=== PATIENT | female | born 1955 | race Caucasian/White ===

== ENCOUNTER 2016-06-25 05:50 | Inpatient (IN) | payer BC ==
[2016-06-03 10:40] VITALS: Ht 149.9 cm; Wt 97.2 kg
--- NOTE | 2016-06-03 11:14 | PAT Medication Instructions ---
Service Date Jun 03, 2016. Current Home Medication List Cholecalciferol (Vitamin D3), 5,000 UNITS PO QAM Cranberry-Vitamin C-Vitamin E (Cranberry), 1 TAB PO QAM Diclofenac Sodium (Topical) (Pennsaid), 1 DOSE TOP BID Letrozole (Femara), 2.5 MG PO QAM Probiotic Product (Probiotic), 1 TAB PO QAM [Zinc], 1 TAB PO QAM [calcium], 600 MG PO QAM Medication Instructions For Your Scheduled Surgery - Check with surgeon/prescribing physician for instructions: Letrozole (Femara), 2.5 MG PO QAM - Hold the following medications 2 weeks prior to surgery: Cranberry-Vitamin C-Vitamin E (Cranberry), 1 TAB PO QAM - Hold the following medications 24 hours prior to surgery: Diclofenac Sodium (Topical) (Pennsaid), 1 DOSE TOP BID - Hold the following medications the morning of surgery: Probiotic Product (Probiotic), 1 TAB PO QAM [Zinc], 1 TAB PO QAM [calcium], 600 MG PO QAM Cholecalciferol (Vitamin D3), 5,000 UNITS PO QAM If you have any questions please call us at [phone] (Viki Villarreal PA-C) or [phone] or [phone]
[2016-06-03 12:08] LABS: BASO % 0.7 %; BASO ABS # 0.06 K/uL (0-0.2); COMPLETE YES; EOS % 5.4 %; HEMATOCRIT 44.1 % (37-47); IG% 0.2 %; LYMPH % 26.1 %; LYMPH ABS # 2.14 K/uL (1.2-3.4); MEAN CELL VOLUME 89.8 fL (80-100); MEAN CORPUSCULAR HEMOGLOBIN 29.3 pg (25-34); MEAN CORPUSCULAR HGB CONC 32.7 g/dl (32-36); MEAN PLATELET VOLUME 11.1 fL (7.4-10.4); NEUT % 61.6 %; PLATELET COUNT 301 K/uL (130-400); RED BLOOD COUNT 4.91 M/uL (4.2-5.4); WHITE BLOOD COUNT 8.19 K/uL (4.8-10.8)
[2016-06-03 12:18] LABS: URINE APPEARANCE CLEAR (CLEAR); URINE BILIRUBIN NEG (NEG); URINE COLOR YELLOW; URINE NITRITE NEG (NEG); URINE PH 5.5 (4.5-7.5); URINE SPECIFIC GRAVITY 1.017 (1.000-1.030); UROBILINOGEN NEG (NEG)
[2016-06-03 12:19] LABS: INR 0.9 (0.9-1.1)
[2016-06-03 12:29] LABS: MANUAL MICROSCOPIC REQUIRED? NO; REVIEW REQ? NO
--- NOTE | 2016-06-03 12:37 | DIAGNOSTIC IMAGING REPORT ---
CHEST 2 VIEWS ROUTINE CLINICAL HISTORY: Preoperative chest COMPARISON STUDY: No previous studies for comparison. FINDINGS: The cardiac and mediastinal contours are normal. There is no evidence of focal pulmonary consolidation. There is no evidence of failure. No pleural effusions are visualized.[ Surgical clips project over the right breast and chest wall. There are surgical clips in right upper quadrant consistent with a prior cholecystectomy. There is a scoliosis. IMPRESSION: No active disease in the chest. Electronically signed by: Fco Quiñones M.D. 06/03/2016 12:35 PM Dictated Date/Time: 06/03/2016 12:34 PM
[2016-06-03 12:47] LABS: ESTIMATED AVERAGE GLUCOSE 111 mg/dl; HA1C FLAG Normal (Normal)
[2016-06-03 14:18] LABS: BUN/CREATININE RATIO 16.3 (10-20); CREATININE 0.87 mg/dl (0.60-1.20)
[2016-06-03 14:29] LABS: CALCIUM 9.8 mg/dl (8.5-10.1)
--- NOTE | 2016-06-24 08:54 | HISTORY & PHYSICAL EXAMINATION ---
DATE OF ADMISSION: 06/25/2016 CHIEF COMPLAINT: Right knee pain. HISTORY OF PRESENT ILLNESS: The patient is a 61-year-old female with known osteoarthritis about her right knee. She had a successful left total knee arthroplasty approximately 4-5 years ago. She also has known osteoarthritis about her right knee. She has had previous corticosteroid as well as viscosupplementation injections. Due to ongoing pain and disability with work and activities of daily living, patient now desires to proceed with right total knee arthroplasty. PAST MEDICAL HISTORY: Sleep apnea, osteoarthritis, obesity and breast cancer. PAST SURGICAL HISTORY: x3, cholecystectomy, endometrial ablation, bladder surgery, left knee replacement as above, right breast mastectomy and reconstruction. MEDICATIONS: Femara 2.5 mg daily, calcium daily, vitamin D3, vitamin B12, cranberry, acidophilus and zinc. ALLERGIES: NIACIN WHICH CAUSES FACIAL FLUSHING. SOCIAL HISTORY AND REVIEW OF SYSTEMS: Noncontributory. PHYSICAL EXAMINATION: GENERAL: Well-nourished, well-developed female who appears her stated age. HEAD, EYES, EARS, NOSE, AND THROAT: Normocephalic, atraumatic, extraocular movements intact, oropharynx pink and moist. NECK: Supple without adenopathy. LUNGS: Clear to auscultation bilaterally. HEART: Regular rate and rhythm. ABDOMEN: Soft, nontender, nondistended, obese. EXTREMITIES: The upper extremity within normal limits. The right knee has a slight varus alignment. Her range of motion is approximately -10 to 110 degrees. She has mild crepitus with range of motion. X-RAYS: X-rays were reviewed. She has a varus aligned knee. She has bone on bone arthritis of the medial compartment with complete loss of joint space. There is subchondral sclerosis. She has mild degenerative changes about the patellofemoral joint as well. ASSESSMENT: Right knee degenerative joint disease. PLAN: Risks versus benefits were discussed, consent was obtained. The patient's primary care physician is Dr. Guerin from [facility] in [place]. Will proceed with right total knee arthroplasty upon preoperative workup and medical clearance.
[~2016-06-25] VITALS: Ht 149.9 cm; Wt 97.2 kg
[2016-06-25] VITALS (9 sets, daily range): BP systolic 107–141; BP diastolic 73–89; PULSE 62–93; TEMP 36.6–36.9; O2SAT 93–99
[~2016-06-25 05:50] MED LIST: CHOL1000 PO; CRAN1CAP15 PO; DICL1SOL6 TOP; FMR25 PO; MISCCAP80 PO; ZINC PO; calcium PO
[2016-06-25] MEDS ORDERED: ACETAMINOPHEN 500 MG TAB PO SCH (06:00)
[2016-06-25] MEDS ORDERED: LACTATED RINGER'S 500 ML IV SCH (06:00)
[2016-06-25] MEDS ORDERED: CEFAZOLIN 2000 MG/60 ML D5W 60 ML IV SCH (06:00)
[2016-06-25] MEDS ORDERED: CeleBREX 200 MG CAP PO SCH (06:00)
[2016-06-25] MEDS ORDERED: LACTATED RINGER'S 1000ML IV SCH ×2 (06:00)
[2016-06-25] MEDS ORDERED: DEXAMETHASONE 4 MG TAB PO SCH (06:00)
[2016-06-25] MEDS ORDERED: GABAPENTIN 300 MG CAP PO SCH (06:00)
[2016-06-25] MEDS ORDERED: ROPIVACAINE 5MG/ML 30 ML 150 MG, BUPIVACAINE/EPINEPHR 0.5% MPF 30 ML, KETOROLAC TROMETH... INFIL SCH ×7 (06:00)
[2016-06-25] MEDS ORDERED: TRANEXAMIC ACID INJ 1,000 MG in SODIUM CHLORIDE 0.9% 100ML 100 ML IV SCH (06:00)
[2016-06-25] MEDS ORDERED: FAMOTIDINE 20 MG TAB PO SCH (06:00)
[2016-06-25] MEDS ORDERED: METOCLOPRAMIDE HCL 10 MG TAB PO SCH (06:00)
[2016-06-25] MEDS ORDERED: LIDOCAINE HCL 2% 2 ML VIAL (20MG/ML) ONE (06:25)
[2016-06-25] MEDS ORDERED: PROPOFOL IV EMULSION 10 MG/ML 20 ML VIAL IV ONE (06:25)
[2016-06-25] MEDS ORDERED: MIDAZOLAM HCL 1 MG/ML 2ML VIAL ONE ×2 (06:25)
[2016-06-25] MEDS: TRANEXAMIC ACID INJ 1,000 MG in SODIUM CHLORIDE 0.9% 100ML 100 ML IV SCH ×2 (06:30→07:46)
[2016-06-25] MEDS ORDERED: ONDANSETRON INJ 2 MG/ML 2 ML VIAL IV PRN ×2 (06:45→10:00)
[2016-06-25] MEDS ORDERED: BUPIVACAINE 0.5 % 5 MG/1 ML PF 10ML VIAL ONE (06:45)
[2016-06-25] MEDS ORDERED: ATROPINE SULFATE 0.1 MG/ML 5ML SYR IV PRN (06:45)
[2016-06-25] MEDS ORDERED: FENTANYL CITRATE INJ 50 MCG/1 ML 2 ML VIAL IV PRN (06:45)
[2016-06-25] MEDS ORDERED: EpHEDrine SULFATE INJ 50 MG/ML AMP IV PRN (06:45)
[2016-06-25] MEDS ORDERED: POVIDONE-IODINE OP SOLN 30 ML BTL ONE (06:58)
[2016-06-25] MEDS ORDERED: ORTHO JOINT ANESTHETIC ONE (06:58)
--- NOTE | 2016-06-25 06:58 | History & Physical Bridge Note ---
H&P Re-Evaluation Bridge Note: I have examined the patient, reviewed the History & Physical and in the interval since the performance of the History & Physical I have noted the following changes of clinical significance: No changes noted
[2016-06-25] MEDS ORDERED: BACITRACIN 50000 UNIT VIAL ONE (06:59)
--- NOTE | 2016-06-25 09:09 | [facility] Post Operative Brief Note ---
Immediate Operative Summary Operative Date June 25, 2016. Pre-Operative Diagnosis Right Knee Degenerative Joint Disease Post-Operative Diagnosis Right Knee Degenerative Joint Disease Procedure(s) Performed Right Total Knee Arthoplasty Surgeon Dr. Vasques Ex Chef Surgeon(s) Omid Ritchie PA-C Estimated Blood Loss 10 cc Findings severe OA Specimens A: Right Knee Bone and Tissue Disposition Recovery Room / PACU
--- NOTE | 2016-06-25 09:45 | OPERATIVE REPORT ---
DATE OF OPERATION: 06/25/2016 PREOPERATIVE DIAGNOSIS: Osteoarthritis, right knee. POSTOPERATIVE DIAGNOSIS: Osteoarthritis, right knee. PROCEDURE: Right cementless total knee arthroplasty with cemented patella. SURGEON: Dr. Vasques. PUBLICITY EXPERT: Omid Ritchie PA-C. ANESTHESIA: Spinal. COMPLICATIONS: None. OPERATION AND FINDINGS: DESCRIPTION OF PROCEDURE: Following induction of adequate spinal anesthesia, the patient's right leg was prepped and draped in the usual sterile manner. Limb was exsanguinated with an Esmarch bandage and tourniquet was inflated to 350 mmHg. Longitudinal incision was made. Subcutaneous tissue was sharply dissected. Electrocautery was used for hemostasis. Median parapatellar incision was made. Patella was everted and the knee was flexed. Fat pad was removed and the medial face of the tibia was cleared with a Bovie and a blunt retractor was placed medially. ACL and PCL were removed. The tibial guide was placed and the proximal tibial cut was made using the oscillating saw. This bone fragment was removed. Next, attention was turned to the distal femur where a drill was used to open the femoral canal and the proximal alignment david was placed and the distal femoral cutting jig and set for 10 mm resection was placed. This was pinned into position. The intramedullary guide was removed and the distal femoral cut was made. These bone fragments were removed and initial cut with a size 3 tibial cutting block was felt to be inadequate and 2 cutting block was placed. These cuts were made and this left perfect bony surfaces. The notch cutting guide was placed and the notch was cut and removed. A laminar elementary teacher was used to expose the posterior reaches of the knee and the medial and lateral meniscuses were removed. The Aquamantys was used to gain hemostasis. Next, the trial femoral component was impacted into position and the drill holes for the cementless femur were made. A blunt Hohmann was used to expose the tibia and the tibial cut was cleaned up and rongeur was used to remove any additional bony fragments. A size 2 tibial tray was placed, the keel punch was used to create the keel slots. A trial reduction was carried out and 9 mm poly gave good reproduction of soft tissue tension with collateral stability in full extension. Next, the patella was reamed to a depth of 13 mm and the drill holes were made using the guide for a 33 mm patella. Trial patella was placed and knee was flexed. There was found to be good tracking of the patella. All trials were removed and the guide was placed in the tibial keel for the 4 drill holes for the cementless tibia and these were created. A periarticular joint injection was performed and thorough irrigation of the joint was performed using pulsatile irrigation. A single bag of cement was mixed for the patella and the trial femur and tibial components were impacted in position. The tibial poly was impacted and the knee was extended and the patella was cemented in position. Excess cement was removed. Drain was placed. #1 Vicryl was used to close the extensor mechanism. Subcutaneous tissues were closed using 0 Dexon, and skin was closed with brandon. A Prevena was placed. The patient tolerated the procedure well. Hot Car Charger was Omid Ritchie PA-C. He was essential throughout the case including positioning, prepping, draping, surgical elastic knitter hand frame, wound closure and dressing application. I attest to the content of the Intraoperative Record and any orders documented therein. Any exceptio ns are noted below.
[2016-06-25] MEDS ORDERED: BISACODYL 10 MG SUPP PR PRN (10:00)
[2016-06-25] MEDS ORDERED: ALUMINUM/MAGNESIUM/SIMETH (MAALOX MAX) 30 ML UDC PO PRN (10:00)
[2016-06-25] MEDS ORDERED: MoRPHine SULFATE 2 MG/ML CARP IV PRN (10:00)
[2016-06-25] MEDS ORDERED: MAGNESIUM HYDROXIDE SUSP 30 ML UDC PO PRN (10:00)
[2016-06-25] MEDS ORDERED: MoRPHine SULFATE 4 MG/ML 1 ML CARP\\VIAL IV PRN (10:15)
[2016-06-25] MEDS ORDERED: MoRPHine SULFATE 10 MG/ML CARP/VIAL IV PRN (10:15)
--- NOTE | 2016-06-25 10:34 | DIAGNOSTIC IMAGING REPORT ---
RIGHT KNEE 2 VIEWS History: Right total knee arthroplasty. Degenerative arthritis. Postop. FINDINGS: The patient is status post a right total knee arthroplasty. The hardware is intact. No fracture or dislocation. Skin brandon and surgical drains are in place. IMPRESSION: Right total knee arthroplasty. No evidence for hardware complication. Electronically signed by: Ke Calvo M.D. 06/25/2016 10:33 AM Dictated Date/Time: 06/25/2016 10:32 AM
--- NOTE | 2016-06-25 10:39 | Anesthesiology Progress Note ---
Anesthesia Post Op Note Date & Time June 25, 2016 at 10:40 Vital Signs Pain Intensity: 0 Vital Signs Past 12 Hours Date Time Temp Pulse Resp B/P Pulse Ox O2 Delivery O2 Flow Rate FiO2 06/25/16 10:36 37 06/25/16 10:31 122/81 06/25/16 10:30 73 15 97 06/25/16 10:30 73 15 06/25/16 10:26 123/83 06/25/16 10:25 73 16 06/25/16 10:25 74 16 98 06/25/16 10:21 108/80 06/25/16 10:20 78 16 06/25/16 10:20 79 16 96 06/25/16 10:16 108/76 06/25/16 10:15 77 15 94 06/25/16 10:15 76 15 06/25/16 10:11 122/75 06/25/16 10:10 84 15 06/25/16 10:10 84 15 93 06/25/16 10:06 117/75 06/25/16 10:05 86 12 06/25/16 10:05 87 12 96 06/25/16 10:01 113/76 06/25/16 10:00 86 15 93 06/25/16 10:00 87 15 06/25/16 09:59 Nasal Cannula 3 06/25/16 09:57 122/67 06/25/16 09:55 84 15 95 06/25/16 09:55 86 15 06/25/16 09:45 36.6 91 16 103/61 97 Room Air 06/25/16 06:23 36.9 87 18 141/88 96 Room Air Notes Mental Status: alert / awake / arousable, participated in evaluation Pt Amnestic to Procedure: Yes Nausea / Vomiting: adequately controlled Pain: adequately controlled Airway Patency, RR, SpO2: stable & adequate BP & HR: stable & adequate Hydration State: stable & adequate Neuraxial Anesthesia: was administered, sensory block is resolving Anesthetic Complications: no major complications apparent
[2016-06-25] MEDS: FERROUS GLUCONATE 324 MG TAB PO SCH ×2 (13:08→18:58)
[2016-06-25] MEDS: D5W AND 1/2NSS + 20MEQ KCL 1,000 ML IV SCH ×2 (13:08→21:50)
[2016-06-25] MEDS: ACETAMINOPHEN 500 MG TAB PO SCH ×2 (13:12→21:49)
[2016-06-25] MEDS: CEFAZOLIN IV 2,000 MG in DEXTROSE 5% 50ML 50 ML IV SCH ×2 (13:19→21:50)
[2016-06-25] MEDS: SENNA 8.6 MG TAB PO SCH (21:48)
[2016-06-25] MEDS: ASPIRIN 81 MG ECTAB PO SCH (21:48)
[2016-06-25] MEDS: DOCUSATE SODIUM 100 MG CAP PO SCH (21:48)
[2016-06-25] MEDS: OXYCODONE HCL 10 MG TABCR (OXYCONTIN) PO SCH (21:49)
[2016-06-25] MEDS: OXYCODONE HCL IR 5 MG TAB (IMMEDIATE RELEASE) PO PRN (23:49)
[2016-06-26 03:26] VITALS: BP 113/74; PULSE 77; TEMP 36.8; O2SAT 98
[2016-06-26] MEDS: ACETAMINOPHEN 500 MG TAB PO SCH ×3 (05:41→22:43)
[2016-06-26] MEDS: OXYCODONE HCL IR 5 MG TAB (IMMEDIATE RELEASE) PO PRN (05:41)
[2016-06-26 05:56] LABS: HEMATOCRIT 35.8 % (37-47); MEAN CELL VOLUME 87.5 fL (80-100); MEAN CORPUSCULAR HEMOGLOBIN 28.6 pg (25-34); MEAN CORPUSCULAR HGB CONC 32.7 g/dl (32-36); PLATELET COUNT 262 K/uL (130-400); RED BLOOD COUNT 4.09 M/uL (4.2-5.4); WHITE BLOOD COUNT 17.17 K/uL (4.8-10.8)
[2016-06-26 06:22] LABS: BUN/CREATININE RATIO 15.6 (10-20); CALCIUM 8.5 mg/dl (8.5-10.1); CREATININE 0.95 mg/dl (0.60-1.20); POTASSIUM 4.4 mmol/L (3.5-5.1)
[2016-06-26 07:13] VITALS: BP 106/72; PULSE 71; TEMP 36.6; O2SAT 96
--- NOTE | 2016-06-26 07:38 | Orthopedic Progress Note ---
Orthopedic Progress Note Date of Service June 26, 2016. Subjective Post OP Day: 1 Reports: feeling well Objective N/V intact, dressing C/D/I (Hemovac in place), toes mobile Date Time Temp Pulse Resp B/P Pulse Ox O2 Delivery O2 Flow Rate FiO2 06/26/16 07:13 36.6 71 16 106/72 96 Room Air 06/26/16 03:26 36.8 77 14 113/74 98 Room Air 06/25/16 23:35 Room Air 06/25/16 23:04 36.6 70 16 124/82 97 Room Air 06/25/16 20:00 36.7 70 18 117/80 94 Room Air 06/25/16 15:50 Nasal Cannula 2.0 06/25/16 15:20 36.6 80 18 107/73 94 Nasal Cannula 2.0 06/25/16 14:10 36.6 93 16 125/82 96 2.0 06/25/16 13:15 79 120/83 94 Nasal Cannula 2.0 06/25/16 12:20 62 16 121/79 99 2.0 06/25/16 11:45 75 130/89 98 Nasal Cannula 2.0 06/25/16 11:27 93 Nasal Cannula 2.0 06/25/16 11:15 Nasal Cannula 2.0 06/25/16 11:15 36.9 80 18 121/83 93 Nasal Cannula 2.0 06/25/16 10:57 78 16 06/25/16 10:57 78 16 95 06/25/16 10:56 119/84 06/25/16 10:52 77 15 96 06/25/16 10:52 76 15 06/25/16 10:51 123/79 06/25/16 10:47 75 15 06/25/16 10:47 75 15 94 06/25/16 10:46 118/82 06/25/16 10:42 76 16 06/25/16 10:42 75 16 94 06/25/16 10:41 114/83 06/25/16 10:37 77 16 06/25/16 10:37 77 16 94 06/25/16 10:36 37 06/25/16 10:31 122/81 06/25/16 10:30 73 15 97 06/25/16 10:30 73 15 06/25/16 10:26 123/83 06/25/16 10:25 73 16 06/25/16 10:25 74 16 98 06/25/16 10:21 108/80 06/25/16 10:20 78 16 06/25/16 10:20 79 16 96 06/25/16 10:16 108/76 06/25/16 10:15 77 15 94 06/25/16 10:15 76 15 06/25/16 10:11 122/75 06/25/16 10:10 84 15 06/25/16 10:10 84 15 93 06/25/16 10:06 117/75 06/25/16 10:05 86 12 06/25/16 10:05 87 12 96 06/25/16 10:01 113/76 06/25/16 10:00 86 15 93 06/25/16 10:00 87 15 06/25/16 09:59 Nasal Cannula 3 06/25/16 09:57 122/67 06/25/16 09:55 84 15 95 06/25/16 09:55 86 15 06/25/16 09:45 36.6 91 16 103/61 97 Room Air Laboratory Results 24 Hours: Test 06/26/16 05:20 Hematocrit 35.8 % Hemoglobin 11.7 g/dL Assessment & Plan Assessment: 61 yo female stable POD #1 s/p right TKA Plan: 1. Med management 2. DVT prophylaxis- ASA, TEDs, SCDs 3. PT/OT 4. D/C planning- home w/ OPPT
--- NOTE | 2016-06-26 07:39 | Anesthesiology Progress Note ---
Anesthesia Post Op Note Date & Time June 26, 2016 at 07:39 Vital Signs Pain Intensity: 3.0 Vital Signs Past 12 Hours Date Time Temp Pulse Resp B/P Pulse Ox O2 Delivery O2 Flow Rate FiO2 06/26/16 07:13 36.6 71 16 106/72 96 Room Air 06/26/16 03:26 36.8 77 14 113/74 98 Room Air 06/25/16 23:35 Room Air 06/25/16 23:04 36.6 70 16 124/82 97 Room Air 06/25/16 20:00 36.7 70 18 117/80 94 Room Air Notes Mental Status: alert / awake / arousable, participated in evaluation Pt Amnestic to Procedure: Yes Nausea / Vomiting: adequately controlled Pain: adequately controlled Airway Patency, RR, SpO2: stable & adequate BP & HR: stable & adequate Hydration State: stable & adequate Neuraxial Anesthesia: was administered, sensory block resolved Anesthetic Complications: no major complications apparent
[2016-06-26 09:00] VITALS: BP 116/64; PULSE 91; O2SAT 97
[2016-06-26] MEDS: DOCUSATE SODIUM 100 MG CAP PO SCH ×2 (09:04→20:47)
[2016-06-26] MEDS: MULTIVITAMIN TAB PO SCH (09:04)
[2016-06-26] MEDS: FERROUS GLUCONATE 324 MG TAB PO SCH ×3 (09:04→20:06)
[2016-06-26] MEDS: LETROZOLE 2.5 MG PO SCH (09:05)
[2016-06-26] MEDS: CHOLECALCIFEROL 1000 INTER.UNIT TAB PO SCH (09:05)
[2016-06-26] MEDS: OXYCODONE HCL 10 MG TABCR (OXYCONTIN) PO SCH ×2 (09:06→20:46)
[2016-06-26] MEDS: ASPIRIN 81 MG ECTAB PO SCH ×2 (09:06→20:47)
[2016-06-26] MEDS: PANTOprazole SOD 40 MG TAB PO SCH (09:06)
[2016-06-26 12:00] VITALS: BP 118/81; PULSE 64; TEMP 36.6; O2SAT 98
[2016-06-26 15:15] VITALS: BP 125/80; PULSE 70; TEMP 36.6; O2SAT 95
[2016-06-26] MEDS: SENNA 8.6 MG TAB PO SCH (20:47)
[2016-06-26 23:08] VITALS: BP 145/85; PULSE 82; TEMP 36.9; O2SAT 96
[2016-06-27] MEDS: OXYCODONE HCL IR 5 MG TAB (IMMEDIATE RELEASE) PO PRN ×3 (01:01→14:20)
[2016-06-27] MEDS: ACETAMINOPHEN 500 MG TAB PO SCH ×2 (05:58→14:21)
[2016-06-27 07:30] VITALS: BP 122/88; PULSE 75; TEMP 36.8; O2SAT 95
--- NOTE | 2016-06-27 08:06 | Orthopedic Progress Note ---
Orthopedic Progress Note Date of Service June 27, 2016. Subjective Post OP Day: 2 Reports: feeling well, nausea / vomiting (TOOK MEDS ON EMPTY STOMACH THIS AM), Denies: SOB, calf pain, chest pain, light headedness Objective calves soft nontender, N/V intact, dressing C/D/I (PREVENA), A&O x3, toes mobile Date Time Temp Pulse Resp B/P Pulse Ox O2 Delivery O2 Flow Rate FiO2 06/26/16 23:08 36.9 82 16 145/85 96 Room Air 06/26/16 22:30 Room Air 06/26/16 15:45 Room Air 06/26/16 15:15 36.6 70 20 125/80 95 Room Air 06/26/16 12:00 36.6 64 16 118/81 98 Room Air 06/26/16 09:00 91 97 Assessment & Plan Assessment: 61 yo female stable POD #2 s/p right TKA Plan: 1. Med management 2. DVT prophylaxis- ASA, TEDs, SCDs 3. PT/OT 4. D/C planning- home w/ OPPT- DC HOME TODAY Inhouse Planning Pain Management: Oxycontin, PO Tylenol, Oxy IR DVT Prophylaxis: TEDs, SCDs, ASA Discharge Planning Discharge Planning: home with oppt (DC HOME TODAY)
[2016-06-27] MEDS: LETROZOLE 2.5 MG PO SCH (08:07)
[2016-06-27] MEDS ORDERED: ASPEC81 PO (08:09)
[2016-06-27] MEDS ORDERED: RXC5 PO (08:09)
[2016-06-27] MEDS ORDERED: OXYSR10 PO (08:09)
[2016-06-27] MEDS ORDERED: ACET-1138 PO (08:09)
[2016-06-27] MEDS ORDERED: ONDA8TAB6 PO (08:09)
[2016-06-27] MEDS ORDERED: SNK PO (08:09)
--- NOTE | 2016-06-27 08:10 | Discharge Instructions ---
Discharge Instructions Date of Service June 27, 2016. Admission Reason for Admission: Right Knee Osteoarthritis Discharge Discharge Diagnosis / Problem: SP RIGHT TKA Discharge Goals Goal(s): Decrease discomfort, Improve function, Increase independence Activity Recommendations Activity Limitations: per Instructions/Follow-up section . Instructions / Follow-Up Instructions / Follow-Up ACTIVITY RECOMMENDATIONS: SELF CARE INSTRUCTIONS AFTER TOTAL KNEE REPLACEMENT A. You may need to continue a physical therapy program after discharge from the hospital. There are several options available to you. Your doctor will assist you in selecting the best one for you. 1. An out-patient facility 2 to 3 times a week for therapy or home therapy. 2. Continue working on all exercises taught to you in the hospital. Your goals should be to increase bending of your knee to 90 degrees and beyond and to fully straighten your knee. B. You may progress at your own pace from walking with a walker or crutches to a cane; then to no assistive devices. C. Make walking a part of your daily routine. Be up as much as comfortable with rest periods throughout the day. Rest with leg elevation is very important. Use the ice wrap frequently for the first 3-4 weeks. D. There are no restrictions on activities. You may ride in a car, shop, participate in resaw feeder and all social activities. E. Wear the long elastic stockings (IRON hose) 20 hours a day for 2 weeks after surgery. They can be removed several times a day for laundering and for a bath. F. You may shower, no tub baths until cleared by your doctor. SPECIAL CARE INSTRUCTIONS: VERY IMPORTANT TO READ AND REVIEW A. There are a few signs you need to watch for after you are home. Call [facility] if you notice any of the followin. Increased severe knee pain. Some pain is expected especially when you exercise. 2. Increased swelling in your leg or knee; pain or swelling of the calf muscle in either lower leg. 3. Any fluid drainage from the incision. 4. Shortness of breath or chest pain. B. Please call [facility] at if you have any concerns or questions about your operation or recovery. The doctor or his nurse will return your call promptly. C. You must take antibiotics before dental work, bladder, bowel or other surgery. Your doctor will provide you with a permanent care to carry describing this precaution. IMPORTANT: * REMEMBER TO TAKE ASPIRIN, 81 MG, TWICE DAILY FOR 4 WEEKS UNLESS OTHERWISE DIRECTED. THIS IS YOUR BLOOD THINNER. * HIGH RISK PATIENTS MAY BE PRESCRIBED A STRONGER BLOOD THINNER. THIS WILL BE PROVIDED AT DISCHARGE. * CALL IF INCREASED PAIN, REDNESS, DRAINAGE OR FEVER GREATER THAT 101. * WEAR IRON HOSE 20 HOURS PER DAY FOR 2 WEEKS. Prevena- This is a large suction dressing covering your incision. This will help pull any excess drainage from the wound and allow your incision to heal properly. You may shower with this if you can keep the unit outside of the shower. If any bleeding or leakage is noted please call your doctor's office. This will remain on your incision for 7 days and then should be removed. This can be done yourself or by the home nursing staff if applicable. The entire unit is disposable once removed. Once removed, keep incision clean and dry. If redness or drainage is noted, please call your surgeon. FOLLOW UP VISIT: If appointment is not already scheduled: Please call [facility] to make a follow-up appointment for 2 weeks after your surgery at . IF NAUSEA CONTINUES AT HOME STOP TAKING OXYCONTIN! Current Hospital Diet Patient's current hospital diet: Regular Diet Discharge Diet Recommended Diet: Regular Diet Procedures Procedures Performed: Right Total Knee Arthoplasty Pending Studies Studies pending at discharge: no Laboratory Results Hemoglobin A1c Test 06/03/16 11:21 Range/Units Estimated Average Glucose 111 mg/dl Hemoglobin A1c 5.5 4.5-5.6 % Medical Emergencies . Who to Call and When: Medical Emergencies: If at any time you feel your situation is an emergency, please call 911 immediately. . Non-Emergent Contact Non-Emergency issues call your: Surgeon . "Provider Documentation" section prepared by Yazmin Rae. . VTE Core Measure Inpt VTE Proph given/why not?: Other Anticoagulation, T.E.DJoe Shepherd, SCD's [place] Drug Monitoring Program Search Results: patient reviewed within database, no issues identified
[2016-06-27] MEDS: MULTIVITAMIN TAB PO SCH (09:00)
[2016-06-27] MEDS: CHOLECALCIFEROL 1000 INTER.UNIT TAB PO SCH (09:00)
[2016-06-27] MEDS: FERROUS GLUCONATE 324 MG TAB PO SCH ×2 (09:08→14:21)
[2016-06-27] MEDS: ASPIRIN 81 MG ECTAB PO SCH (09:09)
[2016-06-27] MEDS: DOCUSATE SODIUM 100 MG CAP PO SCH (09:09)
[2016-06-27] MEDS: OXYCODONE HCL 10 MG TABCR (OXYCONTIN) PO SCH (09:12)
[2016-06-27 09:58] VITALS: O2SAT 95
[2016-06-27] MEDS: PANTOprazole SOD 40 MG TAB PO SCH (10:36)
[2016-06-27 11:25] VITALS: BP 124/82; PULSE 71; TEMP 36.7; O2SAT 96
[2016-06-27 14:04] VITALS: BP 124/82; PULSE 71; TEMP 36.7; O2SAT 96
--- NOTE | 2016-06-30 12:33 | DISCHARGE SUMMARY ---
DISCHARGE DIAGNOSIS: Degenerative joint disease right knee. SECONDARY DIAGNOSES: Sleep apnea, osteoarthritis, obesity and breast carcinoma. CONSULTS: None. COMPLICATIONS: None. PROCEDURES: Right total knee arthroplasty performed by Dr. Vasques on 06/25/2016. BRIEF HISTORY: As dictated in the history and physical. HOSPITAL SUMMARY: The patient was admitted on the above-noted date and had the above-noted surgery performed which she tolerated well. On the first postoperative day, she was feeling well and had no complaints. Dressings were intact. Toes were mobile. Neurovascular intact. Vital signs were stable. She was started on physical therapy protocol and continued on DVT prophylaxis and pain management. Hemoglobin was 11.7 and by her second postoperative day, she was having some nausea and took meds on empty stomach that morning. She had no shortness of breath, no calf pain, no chest pain or lightheadedness. Calves were soft, nontender, neurovascularly intact. Dressings clean, dry and intact. Toes were mobile. Vital signs were stable. She was afebrile. Plans were to continue her PT protocol, antiemetics for nausea. She continued to progress well and her nausea was resolving and it was felt that she could be discharged to home on 06/27/2016. For further review, please see chart. LAB AND X-RAY DATA: As per chart. DISCHARGE INSTRUCTIONS: The patient was discharged to home in satisfactory condition on 06/27/2016. DIET: Regular. ACTIVITY: Follow TK instruction sheets and special care instructions as noted and follow up with Dr. Dr. Vasques in 2 weeks. The patient to call for appointment if one has not been made for you. DISCHARGE MEDICATIONS: Acetaminophen 1000 mg p.o. q. 8 hours, aspirin 81 mg p.o. b.i.d., Zofran 8 mg p.o. q. 8 hours p.r.n. nausea, OxyContin 10 mg p.o. q. 12 hours, oxycodone 5-10 mg p.o. q. 4 hours p.r.n., senna 17.2 mg p.o. at bedtime. Resume taking vitamin D3 5000 units p.o. q.a.m., cranberry, vitamin C 1 tab p.o. q.a.m., topical diclofenac sodium 1 dose topically b.i.d., Femara 2.5 mg p.o. q.a.m., probiotic 1 tab p.o. q.a.m., calcium 600 mg p.o. q.a.m. and zinc 1 tab p.o. q.a.m.
[2016-11-20] MEDS ORDERED: NAPR-998 PO (14:53)
[2016-11-20] MEDS ORDERED: FLUO10CA48 PO (14:53)
== END 2016-06-27 15:00 | disposition home or self-care (01) | DRG 470 ==
LOC: ENRESERVTM → ENRESERVDT → C.ACU 05:50 → C.3E 09:54
PROC: 0SRC0JA Replacement of Right Knee Joint with Synthetic Substitute, Uncemented, Open Approach (ICD-10-PCS; principal; 2016-06-25 08:00)
DX: M17.11 Unilateral primary osteoarthritis, right knee (principal); Z68.41 Body mass index [BMI] 40.0-44.9, adult; G47.33 Obstructive sleep apnea (adult) (pediatric); E66.01 Morbid (severe) obesity due to excess calories; Z96.652 Presence of left artificial knee joint; M85.80 Other specified disorders of bone density and structure, unspecified site; Z79.899 Other long term (current) drug therapy; Z79.1 Long term (current) use of non-steroidal anti-inflammatories (NSAID); Z85.3 Personal history of malignant neoplasm of breast

== ENCOUNTER → 2016-11-23 | Day surgery (SDC) | payer BC ==
[2016-11-20 14:54] VITALS: Ht 151.1 cm; Wt 95.5 kg
[~2016-11-23] VITALS: Ht 151.1 cm; Wt 95.5 kg
[~2016-11-23] MED LIST changes: +500ML BSSPLUS 0.5ML EPI1:1000 IRRIG ONE; +ACETAMINOPHEN 325 MG TAB PO PRN; +BSS FLUSH ONE; +BUPIVACAINE HCL 0.75% 10 ML AMP/VIAL ONE; +CEFAZOLIN SOD 1 GM VIAL ONE; -CHOL1000 PO; -CRAN1CAP15 PO; +DEXAMETHASONE SOD INJ 4 MG/ML VIAL ONE; +EpINEphrine INJ 1MG/ML AMP 1 MG/ML AMP ONE; +FLUO10CA48 PO; +HYALURONIDASE HUMAN 150 UNIT/ML INJ ONE; +INDOCYANINE GREEN 25 MG/10 ML ONE; +LACTATED RINGER'S 1000ML 500 ML IV SCH; +LIDOCAINE HCL 2% 2 ML VIAL (20MG/ML) ONE; +LIDOCAINE MPF 4% INJ INJ ONE; +MIDAZOLAM HCL 1 MG/ML 2ML VIAL ONE; -MISCCAP80 PO; +NAPR-998 PO; +NEOMYCIN/POLYMYX/DEXAMETH OP OINT PER APP CHARGE ONE; +OCUCOAT 1 ML SOLN IO ONE; +POVIDONE-IODINE OP SOLN (SURGERY CNTR CHARGING ONLY) ONE; +PROPARACAINE 0.5% OP SOLN PER DROP CHARGE OPL SCH; +PROPOFOL IV EMULSION 10 MG/ML 20 ML VIAL IV ONE; +TIMOLOL MALEATE 0.5% OP SOLN PER DROP CHARGE ONE; -ZINC PO; -calcium PO
[2016-11-23] MEDS: PHENYLEPHRINE HCL 2.5% OP SOLN PER DROP CHARGE OPL SCH ×2 (07:33→07:38)
[2016-11-23] MEDS: TROPICAMIDE 1% OP SOLN PER DROP CHARGE OPL SCH ×2 (07:34→07:39)
--- NOTE | 2016-11-23 07:50 | History & Physical Bridge - [place] ---
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 I have examined the patient, reviewed the History & Physical and in the interval since the performance of the History & Physical I have noted the following changes of clinical significance: No changes noted
--- NOTE | 2016-11-23 08:58 | [facility] Operative Report ---
Operative Report Date of Service Nov 23, 2016. Operative Report PREOPERATIVE DIAGNOSIS: Macular hole, left eye. ICD10 CODE: H35.342 POSTOPERATIVE DIAGNOSIS: same. PROCEDURE: 1. Pars plana vitrectomy, 23 gauge. 2. Membrane peeling of the internal limiting membrane. 3. Fluid-air exchange. 4. Air-gas exchange w/ SF6 20 %. All to the left eye. CPT CODE: 50771 SURGEON: Jose Marie D.O. COMPLICATIONS: None. ESTIMATED BLOOD LOSS: None. SPECIMENS: None. ANESTHESIA: Retrobulbar block and MAC. INDICATIONS FOR PROCEDURE: The patient has a macular hole that is visually significant. Vitrectomy surgery is indicated to decrease risk of vision loss and potentially improve vision. CONSENT: The risks, benefits and alternatives were discussed with the patient including but not limited to decreased visual acuity, failure to achieve desired results, loss of the eye, infection, pain, glaucoma, lens changes, retinal tears, retinal detachment, the need for more procedures, drooping of the eyelid, blindness, and double vision. The patient is aware of risks and consents to the surgery. Consent is signed and on the chart. OPERATION AND FINDINGS: The patient was brought to the operating room where the patient was identified by name, date, and medical record number. The surgical site was confirmed with the informed written consent. The patient was sedated by the anesthesiology team after which a 50:50 mixture of 4% lidocaine and 0.75% bupivacaine with hyaluronidase was administered in a standard retrobulbar fashion. A total of 4 ml was administered without difficulty. The patient was then prepped and draped in the usual sterile manner for retinal surgery. A wire lid speculum was placed and an Sincere 23-gauge trocar cannula system was employed. The inferior temporal trocar cannula was first placed in an angled fashion 3.75mm posterior to the surgical limbus and the infusion cannula was inserted into this cannula after which the intravitreal position was verified prior to turning the infusion on. Two more trocar cannulas were then inserted in an angled fashion, one in the superior temporal, and one in the superior nasal quadrant both 3.75mm posterior to the surgical limbus. A light pipe and vitrector were then introduced into the eye and the BIOM wide angle viewing system was brought into place. Standard core vitrectomy was performed and the vitreous was insured to be totally detached from the posterior pole with the aid of the vitrector. Next 0.05ml of indocyanine green was placed over the macular surface to stain the internal limiting membrane. This was washed from the eye after 10 seconds. At this point a flat contact lens was placed on the surface of the eye and a flex scraper and ILM forceps were then used to gently peel the internal limiting membrane surrounding the macular hole without difficulty. At this point scleral depression was performed for 360 degrees and no retinal tears or detachments were noted. A soft tip cannula was used to perform a fluid- air exchange. Next, SF6 20% was injected in through the infusion cannula for a complete gas fill of the eye. The trocar cannulas were then removed and found to be air tight. The intraocular pressure was found to be within normal limits by palpation and subconjunctival injections of Kefzol and dexamethasone were administered inferiorly and superiorly. The wire lid speculum was removed. Maxitrol and timolol were applied to the surface of the eye. A light patch and shield were taped over the surface of the eye and the patient left the Operating Room in stable condition having tolerated the procedure well. DISPOSITION: A gas bracelet was placed on the patients wrist. The patient was instructed to maintain a face down position overnight. The patient is to call immediately if there are any problems overnight. I attest to the content of the Intraoperative Record and any orders documented therein. Any exceptions are noted below.
--- NOTE | 2016-11-23 08:59 | Discharge Instructions-[facility]urgCtr ---
Discharge Instructions Date of Service Nov 23, 2016. Visit Reason for Visit: Left Eye Macular Hole Discharge Discharge Diagnosis / Problem: same Discharge Goals Goal(s): Improve function Activity Recommendations Activity Limitations: per Instructions/Follow-up section Anesthesia . Post Anesthesia Instructions: If you have had General Anesthesia or IV Sedation: * Do not drive today. * Resume driving when surgeon permits. * Do not make important decisions or sign legal documents today. * Call surgeon for: 1. Temperature elevations greater than 101 degrees F. 2. Uncontrollable pain. 3. Excessive bleeding. 4. Persistent nausea and vomiting. 5. Medication intolerance (nausea, vomiting or rash). * For nausea and vomiting use only clear liquids such as: tea, soda, bouillon until nausea subsides, then gradually increase diet as tolerated. * If you have any concerns or questions, call your surgeon's office. If physician is unavailable and it is an emergency, call 911 or go to the nearest emergency room. . Instructions / Follow-Up Instructions / Follow-Up * May take Tylenol if needed for discomfort. * Do NOT lay flat on back and position head as follows: Face forward and or chin down. Sleep on right side. * Do NOT remove green bracelet until instructed to do so by your surgeon and follow these precautions: * No air travel * No travel above 2500 feet * No nitrous oxide (N2O). * Do NOT remove eye shield. * NO straining, heavy lifting (>15 pounds) or bending below waist. * Avoid getting water or soap directly into operative eye. * Do NOT rub eye. If you experience increasing eye pain not relieved by medication, please contact us immediately at [phone]. If you are unable to reach someone at the above number, call [phone] and ask to speak with the EYE DOCTOR DIVISION CHIEF. Inform them that you are a Dr. Marie patient who had recent surgery. Diet Recommendations Home Diet: resume previous diet Procedures Procedures Performed: Left Eye 23 Gauge Vitrectomy, Membrane Peeling, Insertion SF6 gas Pending Studies Studies pending at discharge: no Medical Emergencies . Who to Call and When: Medical Emergencies: If at any time you feel your situation is an emergency, please call 911 immediately. . Non-Emergent Contact Non-Emergency issues call your: Designer/Writer . . "Provider Documentation" section prepared by Jose Marie. .
[2016-11-23 09:02] VITALS: TEMP 36.4
[2016-11-23 09:22] VITALS: BP 139/89; PULSE 73; O2SAT 96
--- NOTE | 2016-11-23 09:37 | Anesthesia Progress Nt - [facility] ---
Anesthesia Post Op Note Date & Time Nov 23, 2016 at 09:37 Vital Signs Pain Intensity: 0 Vital Signs Past 12 Hours Date Time Temp Pulse Resp B/P (MAP) Pulse Ox O2 Delivery O2 Flow Rate FiO2 11/23/16 09:22 73 16 139/89 (106) 96 Room Air 11/23/16 09:02 36.4 72 16 147/94 (111) 97 Room Air 11/23/16 07:19 36.5 82 16 142/89 (106) 95 Room Air Notes Mental Status: alert / awake / arousable, participated in evaluation Pt Amnestic to Procedure: Yes Nausea / Vomiting: adequately controlled Pain: adequately controlled Airway Patency, RR, SpO2: stable & adequate BP & HR: stable & adequate Hydration State: stable & adequate Anesthetic Complications: no major complications apparent
== END | disposition home or self-care (01) ==
LOC: X.SURG 07:00
PROVIDERS: ATTEND Ophthalmology
DX: H35.342 Macular cyst, hole, or pseudohole, left eye (principal); G47.30 Sleep apnea, unspecified; Z85.3 Personal history of malignant neoplasm of breast; Z82.49 Family history of ischemic heart disease and other diseases of the circulatory system; Z83.3 Family history of diabetes mellitus